=== PATIENT | female | born 1965 | race Caucasian/White ===

== ENCOUNTER → 2021-05-24 | Day surgery (SDC) | payer OTHER ==
[~2021-05-24] VITALS: Ht 152.4 cm; Wt 81.6 kg
[~2021-05-24] MED LIST: CARAFATE1 GM PO; COLACE100 MG PO; COLESTID 1GM TAB1 GM PO; DEXILANT60 MG PO; DRISDOL50000 UNIT PO; FAMOTIDINE40 MG PO; FLOVENT DISKUS50 MCG; HCTZ12.5 MG PO; LIPITOR20 MG PO; PRINIVIL10 MG PO; SINGULAIR10 MG PO; SYNTHROID100 MCG PO; TOPROL XL 25MG25 MG PO; VITAMIN D3125 MC1 PO; ZYRTEC10 M3 PO
== END | disposition home or self-care (01) ==
LOC: FAS 07:57
DX: D13.2 Benign neoplasm of duodenum (principal); K31.7 Polyp of stomach and duodenum; K31.9 Disease of stomach and duodenum, unspecified; K76.0 Fatty (change of) liver, not elsewhere classified; K29.60 Other gastritis without bleeding; K21.9 Gastro-esophageal reflux disease without esophagitis; G89.29 Other chronic pain; E78.5 Hyperlipidemia, unspecified; I10 Essential (primary) hypertension; E03.9 Hypothyroidism, unspecified; E55.9 Vitamin D deficiency, unspecified; M79.10 Myalgia, unspecified site; Z88.8 Allergy status to other drugs, medicaments and biological substances; R14.0 Abdominal distension (gaseous); J45.909 Unspecified asthma, uncomplicated; F17.210 Nicotine dependence, cigarettes, uncomplicated
CPT/HCPCS: J2704; J7120